=== PATIENT | female | born 1955 | race Caucasian/White ===

== ENCOUNTER 2017-01-14 07:09 | Emergency (ER) | payer OTHER ==
[2017-01-14] MEDS ORDERED: DOXYcycline CAP(*) 100 MG PO ONE (07:37)
[2017-01-14 07:43] VITALS: BP 142/84
--- NOTE | 2017-01-14 07:48 | UC ---
Michael Landaverde Alfonso, scribed for Annel Crenshaw MD on 01/14/17 at 0727 . Skin Complaint HPI - HPI Summary HPI Summary: This patient is a 61 year old F presenting to [facility] with a chief complaint of a possible insect bite at the right knee which she noticed at 1999 yesterday. The CC is described as pruritic. The patient rates the burning pain 1/10 in severity. Symptoms aggravated and alleviated by nothing. She reports an erythematous rash. She denies an acknowledged tick bite. Pt thought perhaps a spider bite. Denies hx MRSA. PMHx of HLD and arthritis. Patients medications reviewed this visit. High blood pressure noted. - History of Current Complaint Chief Complaint: UCSkin Stated Complaint: SOFT TISSUE COMPLAINT Hx Obtained From: Patient Onset/Duration: Sudden Onset, Lasting Hours - Noticed yesterday at 1999, Still Present Skin Exposure Onset/Duration: Hours Ago Timing: Constant Onset Severity: Mild Current Severity: Mild Pain Intensity: 1 Pain Scale Used: 0-10 Numeric Location: Other - Right posterior knee Character: Pruritus, Redness, Raised Aggravating: Nothing Alleviating: Nothing Associated Signs & Symptoms: Positive: Rash - erythematous, Tenderness. Negative: Drainage, Red Streaks, Joint Swelling Related History: Possible Reaction to: Insect - Allergy/Home Medications Allergies/Adverse Reactions: Allergies Allergy/AdvReac Type Severity Reaction Status Date / Time No Known Allergies Allergy Verified 08/16/15 07:19 Review of Systems Constitutional: Negative Skin: Other - Positive possible insect bite at the right knee with erythematous rash. Musculoskeletal: Negative Neurological: Negative Psychological: Negative All Other Systems Reviewed And Are Negative: Yes PMH/Surg Hx/FS Hx/Imm Hx Previously Healthy: No Endocrine History: Dyslipidemia - Surgical History Surgical History: Yes Surgery Procedure, Year, and Place: bunions both feet - Family History Known Family History: Positive: Cardiac Disease - Social History Occupation: Employed Full-time Lives: With Family Alcohol Use: Occasionally Substance Use Type: None Smoking Status (MU): Never Smoked Tobacco Physical Exam Triage Information Reviewed: Yes Appearance: Well-Appearing, No Pain Distress, Well-Nourished Vital Signs: Initial Vital Signs Temp 97.7 F 01/14/17 07:16 Pulse 72 01/14/17 07:16 Resp 18 01/14/17 07:16 BP 142/84 01/14/17 07:16 Pulse Ox 100 01/14/17 07:16 Vital Signs Reviewed: Yes Eyes: Positive: Conjunctiva Clear ENT: Positive: Normal ENT inspection. Negative: Muffled/hoarse voice Neck: Positive: Supple Respiratory: Positive: Lungs clear, Normal breath sounds, No respiratory distress Cardiovascular: Positive: RRR, Pulses Normal, Brisk Capillary Refill. Negative : No Murmur Musculoskeletal: Positive: Strength Intact, ROM Intact Neurological: Positive: Alert, Muscle Tone Normal Psychological Exam: Normal Skin: Positive: Other - Diffused erythema and swelling of the popliteal fossa of the right leg that is 8 cm by 6 cm. No punctate bite site. No red streak. Course/Dx - Course Course Of Treatment: This patient is a 61 year old F presenting to [facility] with a chief complaint of a possible insect bite at the right knee which she noticed at 1999 yesterday. The CC is described as pruritic. She denies an acknowledged tick bite. Will treat for possible Lyme disease to cover the cellulitis which is possibly secondary to an insect bite. Patient will be discharged with follow up from Dr. Ashby and a prescription for Doxycycline. Elevated blood pressure without diagnosis of hypertension discussed with the patient. The patient is agreeable with this discharge plan. - Differential Diagnoses - Skin Complaint Differential Diagnoses: Abscess, Allergic Reaction, Cellulitis, Local Allergic Reaction, Tick Born Illness - Diagnoses Provider Diagnoses: Cellulitis, elevated blood pressure without diagnosis of hypertension. Discharge - Discharge Plan Condition: Stable Disposition: HOME Prescriptions: DOXYcycline CAP(*) [DOXYcycline 100MG CAP(*)] 100 mg PO BID #28 cap Patient Education Materials: Cellulitis (ED) Referrals: Srinath Ashby MD [Primary Care Provider] - 1 Day Additional Instructions: Please be sure to FOLLOW UP WITHIN 1 MONTH FOR HYPERTENSION noted today 142/84. We are treating you for cellulitis from the insect bite today, but we are using the antibiotic that will also treat possible Lyme disease. Please be sure to follow up with Dr. Gandara if there is no improvement in your symptoms, and let him know about this possible tick exposure. However it looks more like an insect bite, not a tick bite, and you did not see a tick. It would be too early to draw Lyme serology. You may continue the hydrocortisone cream and the benadryl to treat any allergic component as well. Return to urgent care if you have any new or worsening symptoms. The documentation as recorded by the Michael wilkerson Alfonso accurately reflects the service I personally performed and the decisions made by , Annel Crenshaw MD.
== END 2017-01-14 07:50 | disposition home or self-care (01) ==
LOC: UCEAST 07:09
DX: L03.115 Cellulitis of right lower limb (principal); R03.0 Elevated blood-pressure reading, without diagnosis of hypertension; E78.5 Hyperlipidemia, unspecified
CPT/HCPCS: 99212; A9270-GY; G0463

== ENCOUNTER 2017-03-17 07:40 | Emergency (ER) | payer OTHER ==
--- NOTE | 2017-03-17 08:11 | UC ---
Complaint Female HPI - HPI Summary HPI Summary: 2 DAYS OF LOW BACK PAIN, URINARY FREQUENCY AND URGENCY. NO FEVER OR NAUSEA. HAS OVERALL MALAISE. FEELS LIKE HER PREVIOUS UTIs. IS ALSO C/O LEFT KNEE PAIN ANTERIORLY OVER KNEE CAP. STATES SHE FELL DIRECTLY ON HER KNEE 2 WEEKS AGO AND PAIN HAS BEEN PERSISTENT. HAS FULL ROM AND NO PAIN WITH AMBULATION. JUST WITH PRESSURE OVER KNEE CAP. IS REQUESTING XRAY. - History Of Current Complaint Stated Complaint: UTI Time Seen by Provider: 03/17/17 07:47 Hx Obtained From: Patient Onset/Duration: Gradual Onset, Lasting Days, Still Present Severity Initially: Moderate Severity Currently: Moderate Pain Intensity: 3 Pain Scale Used: 0-10 Numeric - Allergies/Home Medications Allergies/Adverse Reactions: Allergies Allergy/AdvReac Type Severity Reaction Status Date / Time No Known Allergies Allergy Verified 08/16/15 07:19 Home Medications: Home Medications Butalb/Acetamin/Caff TAB* [Fioricet TAB*] 1 tab PO PRN 03/17/17 [History] Rosuvastatin (NF) [Crestor (NF)] 5 mg PO DAILY 03/17/17 [History Confirmed 03/17] Zolpidem TAB* [Ambien*] 5 mg PO PRN 03/17/17 [History] PMH/Surg Hx/FS Hx/Imm Hx - Additional Past Medical History Additional PMH: ARTHRITIS Cardiovascular History: Hypertension - Surgical History Surgical History: Yes Surgery Procedure, Year, and Place: bunions both feet - Family History Known Family History: Positive: Cardiac Disease - Social History Alcohol Use: Occasionally Substance Use Type: None Smoking Status (MU): Never Smoked Tobacco Review of Systems Constitutional: Negative Skin: Negative Respiratory: Negative Cardiovascular: Negative Gastrointestinal: Negative Genitourinary: Frequency, Urgency Musculoskeletal: Other: - LOW BACK PAIN All Other Systems Reviewed And Are Negative: Yes Physical Exam Triage Information Reviewed: Yes Appearance: Well-Appearing, No Pain Distress, Well-Nourished Vital Signs: Initial Vital Signs Temp 98.1 F 03/17/17 07:49 Pulse 65 03/17/17 07:49 Resp 16 03/17/17 07:49 Pulse Ox 100 03/17/17 07:49 Vital Signs Reviewed: Yes Eyes: Positive: Conjunctiva Clear ENT: Positive: Hearing grossly normal Neck: Positive: Supple Respiratory: Positive: No respiratory distress, No accessory muscle use Cardiovascular: Positive: Pulses Normal Abdomen Description: Positive: Nontender, Soft. Negative: CVA Tenderness (R), CVA Tenderness (L), Distended, Guarding Musculoskeletal: Positive: ROM Intact, No Edema, Other: - EXQUISITELY TTP LEFT PATELLA. KNEE EXAM OTHERWISE NORMAL. NO JOINT LINE TENDERNESS. MCL AND LCL INTACT TO STRESS TESTING. NEG LACHMANS. NEG DRAWERS SIGNS. NEG MCMURRAYS. NO TENDERNESS OVER PATELLAR LIGAMENT OR QUADRICEPS TENDON. Neurological: Positive: Alert Psychological: Positive: Age Appropriate Behavior Skin: Negative: rashes Diagnostics - Laboratory Diagnostic Studies Completed/Ordered: URINE DIP 1.015, 2+ LEUKS, TRACE BLOOD - Radiology right knee xray Xray Interpretation: No Acute Changes Radiology Interpretation Completed By: Radiologist Complaint Female Dx - Differential Dx/Diagnosis Provider Diagnoses: 1. UTI. 2. RIGHT KNEE PAIN Discharge - Discharge Plan Condition: Stable Disposition: HOME Prescriptions: Sulfamethox/Trimethoprim DS* [Bactrim DS 800/160 TAB*] 1 tab PO BID #10 tab Patient Education Materials: Urinary Tract Infection in Women (ED), Knee Pain ( ED) Referrals: Srinath Ashby MD [Primary Care Provider] - If Needed Additional Instructions: URINE SENT FOR CULTURE. WE WILL CALL YOU IF WE NEED TO MODIFY YOUR TREATMENT. KNEE XRAY UNREMARKABLE TODAY. FOLLOW-UP WITH YOUR PCP IF YOUR SYMPTOMS DO NOT IMPROVE.
[2017-03-17 08:13] VITALS: BP 152/92
--- NOTE | 2017-03-17 08:36 | RAD ---
HISTORY: Subacute trauma, left knee COMPARISONS: None VIEWS: 4, Frontal, lateral, axial, and oblique views of the left knee FINDINGS: BONE DENSITY: Normal. BONES: There is no displaced fracture. JOINTS: There is mild tricompartmental osteoarthritis. There is no suprapatellar joint effusion or lipohemarthrosis. ALIGNMENT: There is no dislocation. SOFT TISSUES: Unremarkable. OTHER FINDINGS: None. IMPRESSION: NO ACUTE OSSEOUS INJURY. IF SYMPTOMS PERSIST, RECOMMEND REPEAT IMAGING.
--- NOTE | 2017-03-18 17:59 | UC ---
Progress - Progress Note Progress Note: notify pt no uti stop antibiotic recheck with pcp if not better
== END 2017-03-17 09:03 | disposition home or self-care (01) ==
LOC: UCEAST 07:40
DX: N39.0 Urinary tract infection, site not specified (principal); M25.561 Pain in right knee; I10 Essential (primary) hypertension
CPT/HCPCS: 81003; 87086; 99212; G0463

== ENCOUNTER 2017-09-10 09:30 | Emergency (ER) | payer OTHER ==
[2017-09-10 09:41] VITALS: BP 134/84
--- NOTE | 2017-09-10 10:07 | UC ---
Throat Pain/Nasal Sid HPI - HPI Summary HPI Summary: Patient is here today with 2 weeks of an upper respiratory infection. but for the past 3 days has had sinus pain and bilateral ear pain that has been worsening. No fevers - History of Current Complaint Chief Complaint: UCGeneralIllness Stated Complaint: SORE THROAT SINUS ISSUE EAR PAIN Time Seen by Provider: 09/10/17 10:06 Hx Obtained From: Patient ?: No Onset/Duration: Gradual Onset, Lasting Weeks - 2, Worse Since - Past 3 days Severity: Moderate Pain Intensity: 4 Pain Scale Used: 0-10 Numeric Cough: None Associated Signs & Symptoms: Positive: Sinus Discomfort, Nasal Discharge - Allergies/Home Medications Allergies/Adverse Reactions: Allergies Allergy/AdvReac Type Severity Reaction Status Date / Time No Known Allergies Allergy Verified 09/10/17 09:37 PMH/Surg Hx/FS Hx/Imm Hx Previously Healthy: No Endocrine History: Dyslipidemia - Surgical History Surgical History: Yes Surgery Procedure, Year, and Place: bunions both feet - Family History Known Family History: Positive: Cardiac Disease - Social History Occupation: Employed Full-time Lives: With Family Alcohol Use: Occasionally Substance Use Type: None Smoking Status (MU): Never Smoked Tobacco Review of Systems Constitutional: Negative Skin: Negative Eyes: Negative ENT: Sore Throat, Ear Ache - Bilateral, Nasal Discharge, Sinus Congestion, Sinus Pain/Tenderness Respiratory: Negative Cardiovascular: Negative Gastrointestinal: Negative Genitourinary: Negative Motor: Negative Neurovascular: Negative Musculoskeletal: Negative Neurological: Negative Psychological: Negative Is Patient Immunocompromised?: No All Other Systems Reviewed And Are Negative: Yes Physical Exam Triage Information Reviewed: Yes Appearance: Well-Appearing, No Pain Distress, Well-Nourished Vital Signs: Initial Vital Signs Temp 99 F 09/10/17 09:38 Pulse 78 09/10/17 09:38 Resp 16 09/10/17 09:38 BP 134/84 09/10/17 09:38 Pulse Ox 99 09/10/17 09:38 Vital Signs Reviewed: Yes Eye Exam: Normal Eyes: Positive: Conjunctiva Clear ENT Exam: Normal ENT: Positive: Normal ENT inspection, Hearing grossly normal, Pharynx normal, Pharyngeal erythema, Nasal congestion, Nasal drainage, TM bulging - bilateral, TM red - bilateral, Sinus tenderness. Negative: Trismus, Muffled voice, Hoarse voice, Dental tenderness, Uvula midline Dental Exam: Normal Neck exam: Normal Neck: Positive: Supple, Nontender, No Lymphadenopathy Respiratory Exam: Normal Respiratory: Positive: Chest non-tender, Lungs clear, Normal breath sounds, No respiratory distress, No accessory muscle use Cardiovascular Exam: Normal Cardiovascular: Positive: RRR, No Murmur, Pulses Normal, Brisk Capillary Refill Musculoskeletal Exam: Normal Musculoskeletal: Positive: Strength Intact, ROM Intact, No Edema Neurological Exam: Normal Neurological: Positive: Alert, Muscle Tone Normal Psychological Exam: Normal Skin Exam: Normal Throat Pain/Nasal Course/Dx - Course Assessment/Plan: Increase fluids, Augmentin, and Mucinex D. A disease Diflucan should signs and symptoms of yeast infection occur. Follow with primary care doctor - Differential Dx/Diagnosis Provider Diagnoses: Bilateral otitis media, acute rhinosinusitis Discharge - Sign-Out/Discharge Documenting (check all that apply): Discharge - Discharge Plan Condition: Stable Disposition: HOME Prescriptions: Amoxicillin/Clavulanate TAB* [Augmentin TAB 875*] 875 mg PO BID #20 tab Fluconazole 150 MG (NF) [Diflucan 150 mg (NF)] 150 mg PO ONCE #1 tab Patient Education Materials: Decongestant/Expectorant (By mouth), Sinusitis (ED ), Ear Infection (ED) Referrals: Srinath Ashby MD [Primary Care Provider] - If Needed - Billing Disposition and Condition Condition: STABLE Disposition: HOME
== END 2017-09-10 10:33 | disposition home or self-care (01) ==
LOC: UCEAST 09:30
DX: H66.93 Otitis media, unspecified, bilateral (principal); J01.90 Acute sinusitis, unspecified; E78.5 Hyperlipidemia, unspecified
CPT/HCPCS: 87651; 99212; G0463

== ENCOUNTER 2017-11-09 09:07 | Emergency (ER) | payer OTHER ==
[2017-11-09 09:27] VITALS: BP 138/84
--- NOTE | 2017-11-09 10:50 | UC ---
Heather Landaverde Gabriel, scribed for Rekha Baig MD on 11/09/17 at 0945 . Dizzy HPI HPI Summary: This patient is a 62 year old F presenting to [facility] accompanied by her with a chief complaint of dizziness that occurred this morning. Pt hit her head a week ago and has been closely monitoring herself for adverse symptoms and she has had none until today. A week ago she states a weedwhacker fell in her garage on her head but states it was low impact. There was no n/v or dizziness. Today the pt was woke up and drove to work feeling normal but when she got out of her car she began to feel off balance. Pt states thought she pulled a muscle while doing her hair this morning and states the pain was under the right shoulder blade. She has no pain with movement of the RUE. Today she was reaching in the car to get her bag with her right hand when the sx began. On onset she had to support herself with the car due to dizziness, she describes it as feeling light headed and like an out of body experience. The intensity lasted a few minutes and then resolved slightly but not completely allowing her to ambulate. Once she got to her office she felt much better but still had some sx. At this point she ate 2 waffles, which she tolerated fine and took imitrex. After this she still needed to use handrails in order to ambulate. She states these symptoms are not her typical pre-migraine ones, usually she has small visual disturbance, which she did not experience today. Additionally she states her typical medication which resolves her symptoms quickly did not today. The patient rates the pain 0/10 in severity. Pt states she did not have a BYRNE on onset but has developed a slight one while in the UC. Patient reports diarrhea for the couple days and an unusual feeling on her tongue. Patient denies CP, palpitations, ABD pain, n/v, melena, blood in stool, dysuria, increased urinary frequency, changes in hearing, visual changes, sore throat, neck pain, loss of sense of smell, trouble ambulating, and rash. Her PCP is Dr. Kishore Ashby in [place]. She has no history of blood disorders but her aunt has lupus. Hx of herniated disc in the right side of the neck that did not need operation and does not bother her. She believes it was C5 but is unsure. She has been the PT for rotator cuff injury andused prednisone for recovery. The pt declined ambulance transport when offered and would rather have her drive her. They were informed of possible risks. - History Of Current Complaint Chief Complaint: UCDizziness Stated Complaint: LIGHTHEADED Time Seen by Provider: 11/09/17 09:10 Hx Obtained From: Patient Onset/Duration: Lasting Hours, Still Present Timing: Constant Severity Initially: Mild Severity Currently: Mild Pain Intensity: 0 Pain Scale Used: 0-10 Numeric Alleviating Factor(s): Nothing Associated Signs And Symptoms: Positive: Negative - CP, palpitations, ABD pain, n/v, melena, blood in stool, dysuria, increased urinary frequency, changes in hearing, visual changes, sore throat, neck pain, loss of sense of smell, trouble ambulating, and rash. - Allergies/Home Medications Allergies/Adverse Reactions: Allergies Allergy/AdvReac Type Severity Reaction Status Date / Time No Known Allergies Allergy Verified 11/09/17 09:27 PMH/Surg Hx/FS Hx/Imm Hx Previously Healthy: Yes Endocrine History: Other Other Endocrine History: arthritis Cardiovascular History: Other Other Cardiovascular History: HLD Neurological History: Migraine - Surgical History Surgical History: Yes Surgery Procedure, Year, and Place: bunions both feet - Family History Known Family History: Positive: Cardiac Disease - father of [place], Diabetes - mother Negative: Seizure Disorder, Blood Disorder - Social History Occupation: Employed Part-time Lives: With Family Alcohol Use: Occasionally Substance Use Type: None Smoking Status (MU): Never Smoked Tobacco Review of Systems Constitutional: Other - off balance Skin: Negative Eyes: Other - see hpi. No vis / aud issues. ENT: Negative, Other - unusual feeling on her tongue. Respiratory: Negative Cardiovascular: Negative Gastrointestinal: Diarrhea Genitourinary: Negative Motor: Negative Neurovascular: Negative Musculoskeletal: Other: - right shoulder pain Neurological: Headache, Other - dizziness Psychological: Negative Is Patient Immunocompromised?: No All Other Systems Reviewed And Are Negative: Yes Physical Exam Triage Information Reviewed: Yes Appearance: Well-Nourished - lying down but able to sit up and stand up ok. Vital Signs: Initial Vital Signs Temp 97.8 F 11/09/17 09:22 Pulse 69 11/09/17 09:22 Resp 18 11/09/17 09:22 BP 138/84 11/09/17 09:22 Pulse Ox 98 11/09/17 09:22 Vital Signs Reviewed: Yes Eye Exam: Normal - perrla eomi, sw / cp. no appreciable nystagmus. ENT Exam: Normal ENT: Positive: Pharynx normal Neck exam: Other - + hx disc herniation R apprxo c6 (?), not focally tender but she reports she is careful to minimize activities inducing pain. No aniya carotid bruits. Neck: Positive: No Lymphadenopathy Respiratory Exam: Normal Respiratory: Positive: Chest non-tender, Lungs clear, Normal breath sounds, No respiratory distress, No accessory muscle use Cardiovascular Exam: Normal Cardiovascular: Positive: RRR, No Murmur, Pulses Normal - correlates with radial pulse, Brisk Capillary Refill Abdominal Exam: Normal Abdomen Description: Positive: Nontender Musculoskeletal Exam: Other - from. moves x 4 ext's. FROM BUE. Strength 5/5 x 4 general exam. Neurological Exam: Other - Normal: CN 1 - 12 intact, incl + sens alcohol swab. No diplopia. DTR's 2+ equal P / BR / R Moves all ext's. Distal sens LT present x 4 ext's Denies B/B issues. Sharpened rhombert - unable to maintain for 1 sec bilat. Heel to toe f/b - unsteady x 3 ft Psychological Exam: Normal - conversing easily and appropriately Skin Exam: Normal - no visible or reported rash Diagnostics - EKG Cardiac Rate: NL - at 0914 Cardiac Rhythm: Sinus: Normal - at 70 BPM , Other Rhythm: New - W[place] 137, QTc 420 , borderline LAD. No old for comparison Dizzy Course/Dx - Course Course Of Treatment: Reviewed with pt and need for further evaluation and treatment in ED. They express understanding and agreement. Decline EMS. Fs glucose 112mg / dl. Nonorthostatic. D/w Dr. Salvador ED. Questions as posed answered to the best of my ability. - Differential Dx/Diagnosis Provider Diagnoses: Dizzy / unsteady - Physician Notifications Discussed Patient Care With: Dat Salvador Time Discussed With Above Provider: 10:14 Instructed by Provider To: Other - We discussed patient care with Dr. Salvador and informed them of the patients case and transfer Discharge - Sign-Out/Discharge Documenting (check all that apply): Discharge/Admit/Transfer - Discharge Plan Condition: Stable Disposition: HOME Patient Education Materials: Lightheadedness (ED), Dizziness (ED) Referrals: Srinath Ashby MD [Primary Care Provider] - Additional Instructions: Please go directly to the Emergency Department. Call 911 if any problems en route. Blood glucose 112mg / dl today - Billing Disposition and Condition Condition: STABLE Disposition: Home The documentation as recorded by the Heather wilkerson Gabriel accurately reflects the service I personally performed and the decisions made by me, Rekha Baig MD.
== END 2017-11-09 10:22 | disposition home or self-care (01) ==
LOC: UCEAST 09:07
DX: R42 Dizziness and giddiness (principal); M25.511 Pain in right shoulder; R26.81 Unsteadiness on feet; E78.2 Mixed hyperlipidemia; G43.909 Migraine, unspecified, not intractable, without status migrainosus; Z82.49 Family history of ischemic heart disease and other diseases of the circulatory system; Z83.3 Family history of diabetes mellitus
CPT/HCPCS: 93005; 99212; G0463

== ENCOUNTER 2017-11-09 10:44 | Emergency (ER) | payer OTHER ==
[2017-11-09 12:34] LABS: ABS Basophils 0 10^3/ul (0-0.2); ABS Eosinophils 0 10^3/ul (0-0.6); ABS Lymphocytes 1.1 10^3/ul (1.0-4.8); ABS Monocytes 0.8 10^3/ul (0-0.8); ABS Neutrophils 5.6 10^3/ul (1.5-7.7); ABS Nucleated RBC 0 10^3/ul; Eosinophil % 0.5 % (0-6); Hematocrit 40 % (35-47); Hemoglobin 13.8 g/dl (12.0-16.0); Lymphocyte % 14.6 % (25-47); Mean Corpuscular HGB Conc 34 g/dl (31-36); Mean Corpuscular Hemoglobin 31 pg (27-31); Mean Corpuscular Volume 90 fL (80-97); Mean Platelet Volume 6.9 um3 (7.4-10.4); Nucleated Red Blood Cells % 0; Platelet Count 289 10^3/ul (150-450); Red Blood Count 4.51 10^6/ul (4.0-5.4); Red Cell Distribution Width 15 % (10.5-15); White Blood Count 7.5 10^3/ul (3.5-10.8)
--- NOTE | 2017-11-09 12:37 | RAD ---
Indication: Dizziness. Presyncopal episode. Comparison: No relevant prior exams available on the [facility] PACS for comparison. Technique: Noncontrast CT vertex of skull through foramen magnum. Report: The sulci, ventricles, and basal cisterns are normal for age. Mild prominence of the cerebellar fissures. Quinn matter white matter differentiation is preserved without evidence for edema. No intra or extra axial hemorrhage, mass, or fluid collection detected. Unremarkable visualized orbital contents. Unremarkable calvarium and skull base. Unremarkable scalp. The visualized paranasal sinuses and mastoid air spaces are clear. IMPRESSION: 1. No acute CT abnormality of the brain. 2. Mild cerebellar atrophy.
[2017-11-09] MEDS ORDERED: Meclizine TAB* 12.5 MG PO ONE (12:43)
--- NOTE | 2017-11-09 12:47 | RAD ---
INDICATION: Dizziness. COMPARISON: There are no prior studies available for comparison. TECHNIQUE: Dual-energy PA and lateral views of the chest were obtained. FINDINGS: The heart is within normal limits in size. There is increased density in the right cardiophrenic angle which is a nonspecific finding likely representing a prominent pericardial fat pad. This can be further evaluated with a CT of the chest. The lungs are clear. No pleural effusion is present. IMPRESSION: 1. NO EVIDENCE FOR ACUTE FINDING. 2. INCREASED DENSITY IN THE RIGHT CARDIOPHRENIC ANGLE LIKELY REPRESENTING A PROMINENT PERICARDIAL FAT PAD ALTHOUGH NONSPECIFIC. THIS CAN BE FURTHER EVALUATED WITH A CT OF THE CHEST.
[2017-11-09 12:55] LABS: EGFR Non-African American 49.1 (>60)
[2017-11-09] MEDS ORDERED: NS 0.9% 1000 ML* 1,000 ML IV ONE (13:23)
[2017-11-09 14:25] LABS: Urine Appearance Clear; Urine Blood Negative (Negative); Urine Color Yellow; Urine Ketones Negative (Negative); Urine Protein Negative (Negative); Urine Specific Gravity 1.023 (1.010-1.030); Urine Urobilinogen Negative (Negative)
--- NOTE | 2017-11-09 15:00 | ED ---
Tobias Landaverde Angela, scribed for Dat Salvador MD on 11/09/17 at 1207 . Dizziness - HPI Summary HPI Summary: This pt is a 62 y/o female presenting to [facility] referred by [facility] c/o dizziness today. Pt describes dizziness as feeling like almost passing out. Pt states she was getting out of her car at work when she felt lightheaded and had to hold on to her car so she wouldn't fall. She states while walking from the garage to her office she felt lightheaded and "lost strength." Pt reports she had the "swimming effect" and felt like passing out. She denies tilting to one side while ambulating. Denies ear pain, sore throat, recent common cold symptoms, headache. Last week pt notes she had a head strike with a heavy object. Denies LOC. In September 2017, pt had a sinus infection and bilateral ear infection. - History Of Current Complaint Chief Complaint: EDDizziness Stated Complaint: DIZZINESS Time Seen by Provider: 11/09/17 11:58 Hx Obtained From: Patient Onset/Duration: Still Present, Suddenly Timing: Constant Severity Currently: Moderate Character: Lightheaded, Weak, Dizzy Aggravating Factor(s): Nothing Alleviating Factor(s): Nothing Associated Signs And Symptoms: Positive: Other: - NEG: headache, ear pain, recent cold symptoms. Negative: Nausea, Vomiting, Chest Pain, Fever, Chills, Inability to Walk - Allergies/Home Medications Allergies/Adverse Reactions: Allergies Allergy/AdvReac Type Severity Reaction Status Date / Time No Known Allergies Allergy Verified 11/09/17 11:00 Home Medications: Home Medications Calcium Carbonate [Calcium] 500 mg PO DAILY 11/09/17 [History Confirmed 11/09/17 ] Multivitamins/Minerals TAB* [Theragran/minerals TAB*] 1 tab PO DAILY 11/09/17 [ History Confirmed 11/09/17] [place]orne-3 Fatty Acids (Nf) [Fish Oil (NF)] 1,000 mg PO DAILY 11/09/17 [History Confirmed 11/09/17] celeCOXIB CAP* [CeleBREX CAP*] 200 mg PO DAILY 11/09/17 [History Confirmed 11/09] PMH/Surg Hx/FS Hx/Imm Hx Endocrine/Hematology History: Denies: Hx Diabetes, Hx Thyroid Disease Cardiovascular History: Reports: Hx Hypertension Respiratory History: Denies: Hx Asthma, Hx Chronic Obstructive Pulmonary Disease (COPD) GI History: Denies: Hx Ulcer - Surgical History Surgery Procedure, Year, and Place: bunions both feet Infectious Disease History: No Infectious Disease History: Denies: Hx Clostridium Difficile, Hx Hepatitis, Hx Human Immunodeficiency Virus (HIV), Hx of Known/Suspected MRSA, Hx Shingles, Hx Tuberculosis, Hx Known/ Suspected VRE, Hx Known/Suspected VRSA, History Other Infectious Disease, Traveled Outside the [place] in Last 30 Days - Family History Known Family History: Positive: Cardiac Disease - Social History Alcohol Use: Occasionally Substance Use Type: Reports: None Smoking Status (MU): Never Smoked Tobacco Review of Systems Negative: Fever, Chills Negative: Ear Ache, Other - cold symptoms Cardiovascular: Negative Respiratory: Negative Neurological: Other - POS: dizziness, lightheadedness Positive: Weakness. Negative: Headache All Other Systems Reviewed And Are Negative: Yes Physical Exam - Summary Physical Exam Summary: VITAL SIGNS: Reviewed. GENERAL: Patient is a well-developed and nourished female who is lying comfortable in the stretcher. Patient is not in any acute respiratory distress. HEAD AND FACE: No signs of trauma. No ecchymosis, hematomas or skull depressions. No sinus tenderness. EYES: PERRLA, EOMI x 2, No injected conjunctiva, no nystagmus. No photophobia. EARS: Hearing grossly intact. Ear canals and tympanic membranes are within normal limits. MOUTH: Oropharynx within normal limits. NECK: Supple, trachea is midline, no adenopathy, no JVD, no carotid bruit, no c- spine tenderness, neck with full ROM. No meningeal signs, no Kernig's or brudzinskis signs. CHEST: Symmetric, no tenderness at palpation LUNGS: Clear to auscultation bilaterally. No wheezing or crackles. CVS: Regular rate and rhythm, S1 and S2 present, no murmurs or gallops appreciated. ABDOMEN: Soft, non-tender. No signs of distention. No rebound no guarding, and no masses palpated. Bowel sounds are normal. EXTREMITIES: FROM in all major joints, no edema, no cyanosis or clubbing. NEURO: Alert and oriented x 3. No acute neurological deficits. Speech is normal and follows commands. No nystagmus. SKIN: Dry and warm GCS: 15 Triage Information Reviewed: Yes Vital Signs On Initial Exam: Initial Vitals Temp Pulse Resp BP Pulse Ox 98 F 65 16 144/58 99 11/09/17 10:57 11/09/17 10:57 11/09/17 10:57 11/09/17 10:57 11/09/17 10:57 Vital Signs Reviewed: Yes Diagnostics - Vital Signs Vital Signs Temp Pulse Resp BP Pulse Ox 11/09/17 10:57 98 F 65 16 144/58 99 - Laboratory Lab Results: Lab Results 11/09/17 11/09/17 11/09/17 Range/Units 12:24 12:24 12:24 WBC 7.5 (3.5-10.8) 10^3/ul RBC 4.51 (4.0-5.4) 10^6/ul Hgb 13.8 (12.0-16.0) g/dl Hct 40 (35-47) % MCV 90 (80-97) fL MCH 31 (27-31) pg MCHC 34 (31-36) g/dl RDW 15 (10.5-15) % Plt Count 289 (150-450) 10^3/ul MPV 6.9 L (7.4-10.4) um3 Neut % (Auto) 74.3 (38-83) % Lymph % (Auto) 14.6 L (25-47) % [place] % (Auto) 10.0 H (0-7) % Eos % (Auto) 0.5 (0-6) % Baso % (Auto) 0.6 (0-2) % Absolute Neuts (auto) 5.6 (1.5-7.7) 10^3/ul Absolute Lymphs (auto) 1.1 (1.0-4.8) 10^3/ul Absolute Monos (auto) 0.8 (0-0.8) 10^3/ul Absolute Eos (auto) 0 (0-0.6) 10^3/ul Absolute Basos (auto) 0 (0-0.2) 10^3/ul Absolute Nucleated RBC 0 10^3/ul Nucleated RBC % 0 APTT (26.0-36.3) seconds Sodium 140 (139-145) mmol/L Potassium 4.2 (3.5-5.0) mmol/L Chloride 107 (101-111) mmol/L Carbon Dioxide 27 (22-32) mmol/L Anion Gap 6 (2-11) mmol/L BUN 27 H (6-24) mg/dL Creatinine 1.12 H (0.51-0.95) mg/dL Est GFR ( Amer) 63.2 (>60) Est GFR (Non-Af Amer) 49.1 (>60) BUN/Creatinine Ratio 24.1 H (8-20) Glucose 95 (70-100) mg/dL Lactic Acid 0.8 (0.5-2.0) mmol/L Calcium 9.4 (8.6-10.3) mg/dL Magnesium 2.1 (1.9-2.7) mg/dL Total Bilirubin 0.30 (0.2-1.0) mg/dL AST 18 (13-39) U/L ALT 26 (7-52) U/L Alkaline Phosphatase 64 (34-104) U/L Troponin I 0.00 (<0.04) ng/mL C-Reactive Protein 1.81 (< 5.00) mg/L B-Natriuretic Peptide ( - 100) pg/mL Total Protein 6.9 (6.4-8.9) g/dL Albumin 4.1 (3.2-5.2) g/dL Globulin 2.8 (2-4) g/dL Albumin/Globulin Ratio 1.5 (1-3) TSH 1.33 (0.34-5.60) mcIU/mL Urine Color Urine Appearance Urine pH (5-9) Ur Specific [place] (1.010-1.030) Urine Protein (Negative) Urine Ketones (Negative) Urine Blood (Negative) Urine Nitrate (Negative) Urine Bilirubin (Negative) Urine Urobilinogen (Negative) Ur Leukocyte Esterase (Negative) Urine WBC (Auto) (Absent) Urine RBC (Auto) (Absent) Urine Bacteria (Absent) Urine Glucose (Negative) 11/09/17 11/09/17 11/09/17 Range/Units 12:24 12:24 14:02 WBC (3.5-10.8) 10^3/ul RBC (4.0-5.4) 10^6/ul Hgb (12.0-16.0) g/dl Hct (35-47) % MCV (80-97) fL MCH (27-31) pg MCHC (31-36) g/dl RDW (10.5-15) % Plt Count (150-450) 10^3/ul MPV (7.4-10.4) um3 Neut % (Auto) (38-83) % Lymph % (Auto) (25-47) % [place] % (Auto) (0-7) % Eos % (Auto) (0-6) % Baso % (Auto) (0-2) % Absolute Neuts (auto) (1.5-7.7) 10^3/ul Absolute Lymphs (auto) (1.0-4.8) 10^3/ul Absolute Monos (auto) (0-0.8) 10^3/ul Absolute Eos (auto) (0-0.6) 10^3/ul Absolute Basos (auto) (0-0.2) 10^3/ul Absolute Nucleated RBC 10^3/ul Nucleated RBC % APTT 29.7 (26.0-36.3) seconds Sodium (139-145) mmol/L Potassium (3.5-5.0) mmol/L Chloride (101-111) mmol/L Carbon Dioxide (22-32) mmol/L Anion Gap (2-11) mmol/L BUN (6-24) mg/dL Creatinine (0.51-0.95) mg/dL Est GFR ( Amer) (>60) Est GFR (Non-Af Amer) (>60) BUN/Creatinine Ratio (8-20) Glucose (70-100) mg/dL Lactic Acid (0.5-2.0) mmol/L Calcium (8.6-10.3) mg/dL Magnesium (1.9-2.7) mg/dL Total Bilirubin (0.2-1.0) mg/dL AST (13-39) U/L ALT (7-52) U/L Alkaline Phosphatase (34-104) U/L Troponin I (<0.04) ng/mL C-Reactive Protein (< 5.00) mg/L B-Natriuretic Peptide 15 ( - 100) pg/mL Total Protein (6.4-8.9) g/dL Albumin (3.2-5.2) g/dL Globulin (2-4) g/dL Albumin/Globulin Ratio (1-3) TSH (0.34-5.60) mcIU/mL Urine Color Yellow Urine Appearance Clear Urine pH 5.0 (5-9) Ur Specific [place] 1.023 (1.010-1.030) Urine Protein Negative (Negative) Urine Ketones Negative (Negative) Urine Blood Negative (Negative) Urine Nitrate Negative (Negative) Urine Bilirubin Negative (Negative) Urine Urobilinogen Negative (Negative) Ur Leukocyte Esterase 1+ A (Negative) Urine WBC (Auto) Trace(0-5/hpf) (Absent) Urine RBC (Auto) Trace(0-2/hpf) (Absent) Urine Bacteria Absent (Absent) Urine Glucose Negative (Negative) Result Diagrams: 11/09/17 12:24 11/09/17 12:24 Lab Statement: Any lab studies that have been ordered have been reviewed, and results considered in the medical decision making process. - Radiology Chest XR Xray Interpretation: No Acute Changes - IMPRESSION: 1. No evidence for acute finding. 2. Increased density in the right cardiophrenic angle likely representing a prominent pericardial fat pad although nonspecific . This can be further evaluated with a CT of the chest. Dr. Salvador has reviewed this radiology report. Radiology Interpretation Completed By: Radiologist - CT Brain CT CT Interpretation: No Acute Changes - IMPRESSION: 1. No acute CT abnormality of the brain. 2. Mild cerebellar atrophy. Dr. Salvador has reviewed this radiology report. CT Interpretation Completed By: Radiologist - EKG 12:03 Cardiac Rate: Bradycardia - at 57 bpm EKG Rhythm: Sinus Bradycardia EKG Interpretation: No ST elevations. T wave inversion in III. Re-Evaluation - Re-Evaluation First Eval Re-Evaluation Time: 14:53 Change: Improved Comment: I reviewed the lab and imaging results with the pt. Pt will be discharged home. Dizzy Course/Dx - Course Assessment/Plan: Is patient is a 62-year-old female who presents to the emergency room after she was transferred from the urgent care with a chief complaint of dizziness. Patient has past medical history significant for insomnia, migraine headaches. Initially the neurological exam is intact. Has no acute focal neurological deficits. The patient is able to ambulate without any ataxia or difficulty. Physical sounds without any significant abnormality except for an increased BUN and creatinine possibly secondary to dehydration. Head CT impression: No acute CT abnormality of the pain. Mild cerebellar atrophy. Chest x-ray impression: No evidence for acute findings. Urinalysis is negative for UTI. At this point I ambulated the patient and she has no ataxia or any other difficulties. It seems to the patient improve her symptoms after she was given meclizine. Therefore the patient will be discharged with follow with primary care physician. I discussed all the findings and test results with the patient. Patient was instructed to return to the emergency room immediately if any of the symptoms return or worsens. Plan of care was discussed with the patient and understands and agrees. All questions were answered at patient satisfaction. There were no further complaints or concerns. Lung exam before discharge: CTA B/L. Good air exchange. No wheezing or crackles heard. CVS: S1 and S2 present. No murmurs appreciated. Patient is alert and oriented x 3. Patient is hemodynamically stable. Patient will be discharged home with follow up PCP in the next 2-3 days - Diagnoses Differential Diagnosis/HQI/PQRI: Benign Paroxysmal Positional Vertigo, CVA, Dysrhythmia, Meniere's Disease, Seizure, Transient Ischemic Attack, Vasovagal Reaction Provider Diagnoses: Dizziness, Vertigo Discharge - Sign-Out/Discharge Documenting (check all that apply): Discharge/Admit/Transfer - Discharge - Discharge Plan Condition: Stable Disposition: HOME Prescriptions: Meclizine TAB* [Antivert 12.5 TAB*] 25 mg PO TID PRN #30 tab PRN Reason: Dizziness Patient Education Materials: Dizziness (ED) Referrals: Srinath Ashby MD [Primary Care Provider] - 3 Days Additional Instructions: Please follow up with your primary care provider. RETURN TO THE ED FOR ANY NEW OR WORSENING SYMPTOMS. The documentation as recorded by the Tobias wilkerson Angela accurately reflects the service I personally performed and the decisions made by , Dat Salvador MD.
[2017-11-09 15:17] VITALS: BP 134/77
== END 2017-11-09 15:45 | disposition home or self-care (01) ==
LOC: ED 10:44
DX: R42 Dizziness and giddiness (principal); G31.9 Degenerative disease of nervous system, unspecified; G47.00 Insomnia, unspecified; G43.909 Migraine, unspecified, not intractable, without status migrainosus
CPT/HCPCS: 36415; 70450; 71046; 80053; 81003; 81015; 83605; 83735; 83880; 84443; 84484; 85025; 85730; 86140; 87086; 93005; 99284; A9270-GY